=== PATIENT | female | born 1975 | race Caucasian/White ===

== ENCOUNTER 2018-11-18 19:22 | Emergency (ER) | payer SELFPAY ==
[2018-11-18] MEDS ORDERED: Benzonatate 100 MG CAP ONE (19:45)
== END 2018-11-18 20:24 | disposition home or self-care (01) ==
LOC: NAV ERS 19:22
DX: N39.0 Urinary tract infection, site not specified (principal); F17.210 Nicotine dependence, cigarettes, uncomplicated
CPT/HCPCS: 99283